=== PATIENT | male | born 1960 | race Caucasian/White ===

== ENCOUNTER 2016-12-20 10:53 | Day surgery (SDC) | payer BC ==
[2016-12-20] MEDS ORDERED: FAMOTIDINE 20 MG TAB PO ONE (10:56)
[2016-12-20] MEDS ORDERED: NS 1,000 ML IV ONE (10:56)
[2016-12-20] MEDS ORDERED: DIAZEPAM 5 MG TAB PO ONE (10:56)
[2016-12-20] MEDS ORDERED: ASPIRIN EC 325 MG TAB PO ONE ×2 (10:56→11:18)
[2016-12-20] MEDS ORDERED: diphenhydrAMINE 25 MG CAP PO ONE ×2 (10:56→11:17)
--- NOTE | 2016-12-20 11:10 | CPEKG ---
Heart Rate: 65 RR Interval: 923 P-R Interval: 188 QRSD Interval: 96 QT Interval: 416 QTC Interval: 433 P [place]: 23 QRS [place]: 45 T Wave [place]: 53 EKG Severity - NORMAL ECG - EKG Impression: SINUS RHYTHM Electronically Signed By: Juan F Haq 21-Dec-2016 09:22:16
[2016-12-20] MEDS ORDERED: DIAZEPAM 5 MG TAB ONE (11:18)
[2016-12-20] MEDS ORDERED: FAMOTIDINE 20 MG TAB ONE (11:18)
[2016-12-20 11:27] LABS: % IMMATURE GRANULYOCYTES 0.2 % (0.0-1.1); ABSOLUTE IMMATURE GRANULOCYTES 0.01 10^3/uL (0.00-0.10); ADD DIFF? NO; ADD MORPH? NO; ADD SCAN? NO; ATYPICAL LYMPHOCYTE FLAG 0 (0-99); FRAGMENT RBC FLAG 0 (0-99); HEMATOCRIT 45.7 % (40.0-51.0); HEMOGLOBIN 16.3 g/dL (13.7-17.5); LEFT SHIFT FLG 0 (0-99); LIPEMIA HEMOLYSIS FLAG 90 (0-99); MEAN CELL HEMOGLOBIN 30.8 pg (27.9-34.1); MEAN CELL HEMOGLOBIN CONCENTR. 35.7 g/dL (32.4-36.7); MEAN CELL VOLUME 86.4 fL (81.5-99.8); MEAN PLATELET VOLUME 9.3 fL (8.7-11.7); PLATELET CLUMPS FLAG 0 (0-99); PLATELET COUNT 215 10^3/uL (150-400); RED BLOOD CELL COUNT 5.29 10^6/uL (4.40-6.38)
[2016-12-20 11:40] LABS: INR 1.03 (0.83-1.16); PROTIME(PATIENT) 13.4 SEC (12.0-15.0)
[2016-12-20 11:49] LABS: ANION GAP 11 mEq/L (8-16); CALCIUM 9.6 mg/dL (8.5-10.4); CARBON DIOXIDE 26 mEq/l (22-31); CHLORIDE 104 mEq/L (97-110); CHOLESTEROL 134 mg/dL (140-220); CHOLESTEROL/HDL RATIO 2.31 RATIO (1.00-4.97); CREATININE 0.7 mg/dL (0.7-1.3); GLOMERULAR FILTRATION RATE > 60; GLUCOSE 106 mg/dL (70-100); HIGH DENSITY LIPOPROTEIN 58 mg/dL (40-65); LOW DENSITY LIPOPROTEIN 64 mg/dL (80-100); POTASSIUM 4.5 mEq/L (3.5-5.2); SODIUM 141 mEq/L (134-144); TRIGLYCERIDE 60 mg/dL (40-150); VERY LOW DENSITY LIPOPROTEINS 12 mg/dL (8-25)
[2016-12-20 11:50] LABS: MAGNESIUM 2.2 mg/dL (1.6-2.3); NON-HIGH DENSITY LIPOPROTEIN 76 mg/dL (90-129)
[2016-12-20] MEDS ORDERED: MIDAZOLAM 2 MG/2 ML VIAL ONE ×2 (14:35→15:31)
[2016-12-20] MEDS ORDERED: LIDOCAINE 1% 30 ML SDV ONE (14:35)
[2016-12-20] MEDS ORDERED: fentaNYL 100 MCG/2 ML INJ ONE (14:35)
[2016-12-20] MEDS ORDERED: IOPAMIDOL (ISOVUE-300) 150 ML BTL IV ONE (14:36)
[2016-12-20] MEDS ORDERED: HEPARIN 10,000 UNIT/10 ML MDV ONE (14:36)
[2016-12-20] MEDS ORDERED: VERAPAMIL 5 MG/2 ML VIAL ONE (14:36)
--- NOTE | 2016-12-20 14:51 | SUROPNOTE ---
TRA Operative Report - Surgery Date of Procedure: 12/20/16 Indication: This patient is a 56 year old man, with known coronary disease on the basis of calcium score (90th percentile for age matched patients), presenting in the setting of abnormal routine nuclear stress test. Myocardial perfusion imaging demonstrated a moderate size, mild-moderate intensity reversible defect involving the full extent of the inferior wall, consistent with ischemia. The patient is asymptomatic. He is tentatively scheduled for hernia surgery 12/21/16. Left heart catheterization indicated secondary to intermediate risk non-invasive testing and upcoming surgery. Procedures performed: 1. Left heart catheterization with left ventricular and selective coronary angiography. Description of procedure: Description, risks, benefits and alternatives were discussed in detail. Informed consent was obtained. The patient was brought to the catheterization laboratory where a timeout was performed. The right wrist was sterilely prepped and draped. 2% lidocaine utilized for local anesthetic. A 5/6-Maltese slender hemostatic sheath placed right radial artery utilizing micropuncture technique. Intraarterial verapamil and intravenous heparin was administered. Diagnostic coronary angiography performed with 6-Maltese, Skye left-3.5 and Skye right -4 catheter. All catheters were passed over a 0.035 guidewire. Pigtail catheter was then utilized for left heart catheterization and left ventricular angiography. Arterial sheath was removed and TR band was placed. Findings: 1. Hemodynamics: Aortic pressure 119/58, mean of 96, left ventricular pressure 119/5/13 end-diastolic. There was no significant pull back gradient across the aortic valve. 2. Left ventricle: The left ventricle appears normal in size. Left ventricle is normal shape. Segmental wall motion is normal with an ejection fraction of 65 %. There are no filling defects or significant mitral regurgitation. The aortic root and ascending aorta appears normal, there is no dissection or aneurysm formation. 3. Coronary angiography: Left main: The left main is a large trifurcating vessel, mild calcified disease. 4. Left anterior descending: This is a moderate-sized vessel continuing around the apex. There is a moderate sized, multibranching diagonal branch. The mid LAD , prior to the diagonal origin, contains a 30-40% stenosis. 5. Ramus intermedius: Moderate sized vessel with mild calcified disease. 6. Circumflex: The circumflex is non-dominant and gives rise to a small first obtuse marginal branch, moderate size second obtuse marginal branch, and a very large left atrial branch. No significant stenosis. 7. Right coronary: Large dominant vessel. Moderate PDA, large posterolateral. There is a distal 50% stenosis by the posterolateral origin. Mild calcified disease. Overall Impression: 1. [id number] non-obstructive calcified disease throughout, mainly in the left anterior descending and right coronary artery. 2. Normal left ventricular systolic function, with ejection fraction of 65%. Plan: 1. From a cardiac standpoint, there is no contraindication to proceed with elective hernia surgery. 2. Aggressive risk modification and high dose statin therapy. Portions of this report were documented by a medical records clerk. I have reviewed this report and agree with the documentation. Report scribed for Dr. Hans Myles. Report scribed by Dominique Conroy.
[2016-12-20] MEDS ORDERED: ATROPINE SULFATE 1 MG/10 ML SYR IVP PRN (16:26)
[2016-12-20] MEDS ORDERED: NITROGLYCERIN 0.4 MG BTL SL PRN (16:26)
[2016-12-20] MEDS ORDERED: ONDANSETRON 4 MG/2 ML VIAL IVP PRN (16:26)
[2016-12-20] MEDS ORDERED: HYDROCODONE/APAP 5/325 TAB PO PRN (16:26)
[2016-12-20] MEDS ORDERED: OXYCODONE/APAP 5/325 TAB PO PRN (16:26)
== END 2016-12-20 18:19 | disposition home or self-care (01) ==
LOC: FCATH 10:53
PROVIDERS: ATTEND Internal Medicine Interventional Cardiology
PROC: B2111ZZ Fluoroscopy of Multiple Coronary Arteries using Low Osmolar Contrast (ICD-10-PCS; principal; 2016-12-20)
PROC: 4A023N7 Measurement of Cardiac Sampling and Pressure, Left Heart, Percutaneous Approach (ICD-10-PCS; principal; 2016-12-20)
PROC: B2151ZZ Fluoroscopy of Left Heart using Low Osmolar Contrast (ICD-10-PCS; principal; 2016-12-20)
DX: I25.10 Atherosclerotic heart disease of native coronary artery without angina pectoris (principal); E78.5 Hyperlipidemia, unspecified; R94.39 Abnormal result of other cardiovascular function study; G47.33 Obstructive sleep apnea (adult) (pediatric); M10.9 Gout, unspecified; G47.00 Insomnia, unspecified
CPT/HCPCS: J1644; J2250; J3010; Q9967

== ENCOUNTER 2019-02-04 04:06 | Emergency (ER) | payer BC ==
--- NOTE | 2019-02-04 04:17 | EDPHY ---
H & P Time Seen by Provider: 02/04/19 04:15 HPI/ROS: Chief Complaint: Syncope HPI: 58-year-old male got up this morning to help his when he had a syncopal event. Patient has had a similar episode about a year ago. He did state that he took about 1/3 of an Ambien before going to bed tonight. Patient states that when he woke up he was feeling little bit lightheaded when he sat up. He stood up, anything became black any collapse. Per his he was on conscious for about 30 sec. On EMS arrival patient was awake and alert. Heart rate was 50. Blood pressure was in the 80 systolic. He is currently without complaint. Denies any leg pain or swelling. No chest pain. No shortness of breath. Does have a history of coronary artery disease but has never had any intervention. Last stress test was about a year ago and was normal. Denies any recent illness. No fevers or chills. Did report that a month ago he did have some dark tarry stools but this has since resolved. No abdominal pain. ROS: 10 systems were reviewed and were negative except those elements noted in the HPI. PMH: Coronary artery disease, hyperlipidemia Social History: No smoking, daily alcohol, no recreational drug use Family History: non-contributory Physical Exam: Gen: Awake, Alert, No Distress HEENT: Nose: no rhinorrhea Eyes: PERRLA, EOMI Mouth: Moist mucosa Neck: Supple, no JVD Chest: nontender, lungs clear to auscultation Heart: S1, S2 normal, no murmur Abd: Soft, non-tender, no guarding Back: no CVA tenderness, no midline tenderness Ext: no edema, non-tender Skin: no rash Neuro: CN II-XII intact, Sensation grossly intact, Strength 5/5 in bilateral upper and lower extremities - Personal History Tetanus Vaccine Date: <10 YRS - Social History Smoking Status: Former smoker Constitutional: Initial Vital Signs Temperature (C) 36.6 C 02/04/19 04:13 Heart Rate 58 L 02/04/19 04:13 Respiratory Rate 20 02/04/19 04:13 Blood Pressure 122/73 H 02/04/19 04:13 O2 Sat (%) 99 02/04/19 04:13 O2 Delivery Mode Room Air Allergies/Adverse Reactions: No Known Allergies Allergy (Unverified 02/04/19 04:09) Home Medications: Medication Instructions Recorded Allopurinol 300 MG (RX) 300 mg PO DAILY 12/20/16 Ambien 10 mg 10 mg PO DAILY PRN 12/20/16 Aspirin 81mg (*) 81 mg PO DAILY 12/20/16 Crestor 40mg (*) 40 mg PO DAILY 12/20/16 Medical Decision Making - Diagnostics EKG Interpretation: ECG time 4:09 a.m., sinus rhythm rate of 51, mildly prolonged p.r. Interval. No acute ST or T-wave changes. No acute ischemia. ED Course/Re-evaluation: 58-year-old mi with a syncopal event today. He has significant coronary risk factors with a high calcium score and jtqd-[id number] disease on catheterization 2 years ago. He is also scheduled to flight a [place] later today. Given his risk factors and his travel plans I think it would be beneficial to admit him to the hospital for further evaluation. I have paged the hospitalist. Patient has been seen by Dr. Lewis, hospitalist. She is offered admission but he is declining at this time. Patient does admit to working out non drinking fluids yesterday, having some cocktails and then taking Ambien. He would prefer to workup done as an outpatient. Also prefer to continue hydration as an outpatient. Plan will be to discharge with referral for outpatient follow-up , return for any concerns. Patient is declining any further treatment or evaluation at this time. - Data Points Laboratory Results: Laboratory Results 02/04/19 04:15 02/04/19 04:15 02/04/19 02/04/19 02/04/19 04:16 04:15 04:15 WBC 6.60 10^3/uL 10^3/uL (3.80-9.50) RBC 4.52 10^6/uL 10^6/uL (4.40-6.38) Hgb 14.3 g/dL g/dL (13.7-17.5) Hct 41.0 % % (40.0-51.0) MCV 90.7 fL fL (81.5-99.8) MCH 31.6 pg pg (27.9-34.1) MCHC 34.9 g/dL g/dL (32.4-36.7) RDW 12.1 % % (11.5-15.2) Plt Count 178 10^3/uL 10^3/uL (150-400) MPV 10.0 fL fL (8.7-11.7) Neut % (Auto) 36.9 % L % (39.3-74.2) Lymph % (Auto) 49.1 % H % (15.0-45.0) Kaufman % (Auto) 9.2 % % (4.5-13.0) Eos % (Auto) 3.8 % % (0.6-7.6) Baso % (Auto) 0.8 % % (0.3-1.7) Nucleat RBC Rel Count 0.0 % % (0.0-0.2) Absolute Neuts (auto) 2.44 10^3/uL 10^3/uL (1.70-6.50) Absolute Lymphs (auto) 3.24 10^3/uL H 10^3/uL (1.00-3.00) Absolute Monos (auto) 0.61 10^3/uL 10^3/uL (0.30-0.80) Absolute Eos (auto) 0.25 10^3/uL 10^3/uL (0.03-0.40) Absolute Basos (auto) 0.05 10^3/uL 10^3/uL (0.02-0.10) Absolute Nucleated RBC 0.00 10^3/uL 10^3/uL (0-0.01) Immature Gran % 0.2 % % (0.0-1.1) Immature Gran # 0.01 10^3/uL 10^3/uL (0.00-0.10) Sodium 140 mEq/L mEq/L (135-145) Potassium 4.0 mEq/L mEq/L (3.5-5.2) Chloride 106 mEq/L mEq/L (97-110) Carbon Dioxide 26 mEq/l mEq/l (22-31) Anion Gap 8 mEq/L mEq/L (6-14) BUN 23 mg/dL mg/dL (7-23) Creatinine 0.8 mg/dL mg/dL (0.7-1.3) Estimated GFR > 60 Glucose 115 mg/dL H mg/dL (70-100) Calcium 9.0 mg/dL mg/dL (8.5-10.4) POC Troponin I 0.00 ng/mL ng/mL (0.00-0.08) Point of Care Test Results: Chemistry 02/04/19 04:16 POC Troponin I 0.00 ng/mL ng/mL (0.00-0.08) Departure - Departure Disposition: Home, Routine, Self-Care Clinical Impression: Syncope, Dehydration Condition: Fair Instructions: Syncope (ED), Dehydration (ED) Additional Instructions: Follow up with primary care physician in 2-3 days for further evaluation. Return to the emergency department for fainting, chest pain, shortness of breath , palpitations, or any other concerns. Referrals: Patient,NotPresent [Unknown] - As per Instructions
[2019-02-04 04:25] LABS: PLATELET COUNT 178 10^3/uL (150-400)
[2019-02-04 07:09] VITALS: BP 114/69
--- NOTE | 2019-02-04 07:38 | GCON ---
[f rep ] CONSULTATION HOSPITALIST CONSULT NOTE DATE OF CONSULTATION: 02/04/2019 CONSULT REQUESTED BY: Dr. Lamb SOURCE: Patient provides history, appears reliable. EMR was reviewed, and case discussed with ED provider. CHIEF COMPLAINT: Syncope, hypotension. HISTORY OF PRESENT ILLNESS: This is a very pleasant 58-year-old gentleman with a past medical history significant for coronary artery disease, hyperlipidemia, insomnia, gout, who presents to the emergency department today via EMS after patient had a syncopal episode at home. Patient reports that he woke up in the middle of the night when his awoke with significant back pain. He attempted to go console her. He got up out of bed, reports that he felt lightheaded and passed out. Patient's had reported to ED provider that patient had been out for approximately 30 seconds. Patient notes that he had not been feeling very well with a little bit of GI upset. He also notes that he had worked out earlier in the day. After further questioning, thinks he did not drink a significant amount of water, had a few martinis in the evening, and then went home. He was having some issues falling asleep, took a partial tab of Ambien and tried to go to sleep. When he awoke and stood up, after a few seconds he felt lightheaded and had a syncopal episode. He denies any preceding headache, changes in vision, numbness or tingling, focal deficits, chest pain, shortness of breath, palpitations. He had otherwise been feeling well. Denies any recent lower extremity edema, orthopnea, or PND. Patient also notes that he had a stress test completed a year ago that was normal. He had a cardiac cath several years ago showing a 40% to 50% occlusion. He also notes that he has been followed closely by Dr. Owens, and recently saw him in December. Studies and testing were completed at [facility]. Upon arrival, EMS noted that patient's blood pressure was 86/52, heart rate in the 50s, and temperature 96.7. He is otherwise verbal and without focal deficits. He was brought to the emergency department. Initial blood pressure in the ER 122/73, heart rate 58, repeat BP at bedside 106/60, and patient with orthostatics that did not quite meet criteria, but a decline in systolic blood pressure from supine to sitting position. Patient denied any symptoms during this assessment. He does report a history several years ago of similar symptoms and a syncopal episode. Patient reported at that time he also was feeling some GI uneasiness, went to the bathroom, and while standing in front of the mirror had a syncopal episode. He denies any focal deficits or weakness. Additionally, patient reports that earlier in the day he had a 45- minute workout. He does not feel he drank a significant amount of fluids throughout the day, enjoyed an evening cocktail per usual, and subsequently took a portion of Ambien before bed. Again, currently patient reports he is feeling well and asymptomatic. REVIEW OF SYSTEMS: Ten systems reviewed, negative except as noted above. ALLERGIES: No known drug allergies. HOME MEDICATIONS: As available per EMR, Crestor 40 mg p.o. daily, aspirin 81 mg p.o. daily, Ambien 10 mg p.o. daily at h.s. p.r.n., allopurinol 300 mg p.o. daily. PAST MEDICAL HISTORY: Significant for hyperlipidemia, insomnia, gout, psoriasis , allergic rhinitis, history of CAD with reported 40% to 50% coronary artery occlusion, and an elevated calcium score. Patient reports a normal stress test 2018, all completed at [facility]. PAST SURGICAL HISTORY: Colonoscopy. FAMILY HISTORY: Father with hyperlipidemia, hypertension, and prostate cancer. Paternal grandmother with diabetes. Patient denies any family history of coronary artery disease or NH. 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 He is . He does not smoke or utilize any illicit drugs. He does note he drinks 1-2 cocktails in the evenings. PHYSICAL EXAMINATION: VITAL SIGNS: As noted in HPI. GENERAL: Patient without any acute distress. Pleasant, adult gentleman is lying awake in bed. HEAD: Normocephalic, atraumatic. EYES: Extraocular muscles are intact. Pupils equal, round, slightly decreased reactivity to light bilaterally, but symmetric. Patient does have some minimal conjunctival injection. No scleral icterus. NECK: Supple. Trachea midline. CV: Regular rate and rhythm in the 60s. No murmurs, rubs, or gallops are appreciated. RESPIRATORY: Lungs are clear to auscultation bilaterally. No wheezes, rales, or rhonchi. ABDOMEN: Positive bowel sounds. Soft, nontender to palpation. No rebound, guarding, or masses appreciated. : No suprapubic tenderness to palpation. No Fields catheter in place. EXTREMITIES: No cyanosis, clubbing, or edema appreciated. Patient with 2+ pedal pulses. No edema. MUSCULOSKELETAL: Strength grossly intact. Moves all extremities. Sits up independently. NEUROLOGIC: Nonfocal. Cranial nerves 2 through 12 are intact and symmetric bilaterally. Strength intact as noted above. PSYCH: Thought process, content, and questions are all appropriate. Patient is pleasant and cooperative. LABORATORY STUDIES: WBC 6.60, H and H are 14.3 and 41.0, MCV of 90.7, platelet count is 178, neutrophil percent 36.9. Sodium is 140, potassium 4.0, chloride 106, CO2 is 26, anion gap 8, BUN 23, creatinine 0.8, GFR greater than 60, glucose 115, calcium is 9.0. Troponin is negative. EKG was reviewed by me showing normal sinus rhythm, rate in the 50s. QTc is 424. Patient with a borderline TX interval. There is less than 1 mm elevation in V2, V3, nonpathologic appearing. Not able to locate any previous EKGs for comparison. ASSESSMENT AND PLAN: Pleasant 58-year-old gentleman with history of hypertension, gout, insomnia, psoriasis, nonocclusive coronary artery disease, who presents to the emergency department following a syncopal episode. 1. Syncope. Differential diagnosis: History and evaluation strongly suggestive of orthostatic hypotension. Patient at baseline heart rate, after reviewing with him on his iPhone watch, HR appears to be 50s to 60s. He is not on any beta blockers or any supplements, and patient reviewed back several weeks regarding his heart rate baseline. He does report that his baseline blood pressure, which he has not checked recently at home, is normally systolic 120s. Currently, patient's blood pressure is in the low 100s. He has an overall negative orthostatic evaluation by criteria, but he did have a slight drop in his blood pressure from lying to sitting. Additionally, patient's blood pressures were originally low when he was initially evaluated by EMS in the 80s. Patient currently orally hydrating. I did offer him a liter bolus by IV. Additionally, we discussed possibilities for orthostatic hypotension, vasovagal response as he reports that he has been having some gastrointestinal upset versus less likely arrhythmia, stroke, or acute coronary syndrome event. Additionally, patient reports that he did work out earlier in the day and did not appropriately hydrate. He did report that his urine has been dark jaqui colored. Additionally, I discussed with the patient it is likely orthostatic and hypovolemia related. He is willing to orally hydrate, plan to recheck a blood pressure, and would be amenable to discharge home. I did offer patient option to continue to monitor for any possibility of an arrhythmia, and to continue monitoring with Cardiology consultation this morning. Overall, discussed with patient the lower probability that this is coronary in etiology. He agrees and would like to be monitored in the emergency department, orally hydrate with repeat blood pressures, and then discharge home. I did encourage patient to return if his symptoms also returned or he had concerns. 2. Hypotension secondary to hypovolemia, dehydration. Patient is currently orally hydrating. Patient's blood pressures are below his reported average outpatient blood pressures. We will plan to repeat after patient has been able to drink an additional 500 to 1000 cc if possible. 3. Hyperlipidemia. Patient can resume his home statin at discharge. Continue with his lifestyle changes as he is doing. 4. Coronary artery disease. Continue aspirin. 5. Gout. Resume allopurinol at discharge. 6. Fluid, electrolyte, and nutrition. Patient is orally hydrating as noted above. Electrolytes are adequate. Diet as tolerated. 7. Prophylaxis. Encourage mobilization. Anticipating discharge. 8. Disposition. Discussed with ER provider, Dr. Lamb. He is in agreement with plan, and patient will be discharged from the emergency department pending repeat blood pressures after hydration. /[id number]/MODL MTDD
== END 2019-02-04 07:09 | disposition home or self-care (01) ==
LOC: EDUNIT#
DX: R55 Syncope and collapse (principal); E86.0 Dehydration; I95.9 Hypotension, unspecified; Z87.891 Personal history of nicotine dependence
CPT/HCPCS: 84484-ER